=== PATIENT | male | born 1975 | race Caucasian/White ===

== ENCOUNTER 2022-04-23 11:02 | Emergency (ER) | payer OTHER ==
[2022-04-23 11:18] LABS: HEMOGLOBIN 14.6 gm/dl (14.0-17.5); RED BLOOD COUNT 4.64 M/UL (4.20-5.50); WHITE BLOOD COUNT 13.2 K/UL (4.5-11.0)
[2022-04-23 14:29] LABS: BUN/CREATININE RATIO 23 (0-10)
[2022-04-23] MEDS ORDERED: ZOFRAN 4 MG TAB4 MG PO (16:09)
== END 2022-04-23 16:57 | disposition home or self-care (01) ==
LOC: ER1 11:02
DX: R11.2 Nausea with vomiting, unspecified (principal); R19.7 Diarrhea, unspecified; I10 Essential (primary) hypertension; F17.210 Nicotine dependence, cigarettes, uncomplicated; Z86.73 Personal history of transient ischemic attack (TIA), and cerebral infarction without residual deficits
CPT/HCPCS: 80053; 81001; 83690; 85025; 96361; 96374; 96375; 99284; J1885; J2405; J7030